=== PATIENT | male | born 1950 | race Caucasian/White ===

== ENCOUNTER 2016-12-04 10:37 | Day surgery (SDC) ==
[2016-12-04] MEDS ORDERED: VERSED ONE (11:30)
[2016-12-04] MEDS ORDERED: DIPRIVAN 20 ML VIAL IVP ONE (11:30)
[2016-12-04 13:22] VITALS: BP 140/90; TEMP 97.2
--- NOTE | 2016-12-04 14:52 | OP ---
PROCEDURE: COLONOSCOPY TO THE CECUM WITH SNARE POLYPECTOMY. ENDOSCOPIST: Adolfo MICHAELS M.D. INDICATION: HISTORY OF POLYPS INSTRUMENT: [id number]. MEDICATION: PER ANESTHESIA. PROCEDURE: The patient was positioned for colonoscopy. The digital rectal exam was negative. The colonoscope was inserted through the anus and advanced under direct vision to the cecum. The cecum was identified using the ileocecal valve and the appendiceal orifice as landmarks. The scope was slowly withdrawn through an adequately prepped colon. On the ileocecal valve I found an area that consisted of an abnormal crept pattern with swirls noted rather then typical crept. This did not appear to be apart of the small bowel mucosa from the ileum. This did not have a raise areas or appear to have a border such as a polyp. I elected to trap this within a snare and remove this using snare cautery. There was no tissue and it was obliterated. I saw no surrounding tissue at completion of the procedure. The remaining colonoscopy was otherwise normal. Retroflex examine was normal. Withdraw time 13 minutes and 12 seconds. PLAN: 1. I would like for her to come back in three years and reinspect this given the fact that tissue was not obtained. CC: Dr. Layton SIDDIQUI
== END 2016-12-04 13:00 | disposition home or self-care (01) ==
LOC: SURG 10:37
PROVIDERS: ATTEND Internal Medicine Gastroenterology
DX: Z08 Encounter for follow-up examination after completed treatment for malignant neoplasm (principal); Z86.010 Personal history of colon polyps; K63.5 Polyp of colon